=== PATIENT | female | born 1990 | race African-American/Black ===

== ENCOUNTER 2022-11-30 04:07 | Day surgery (SDC) | payer BC ==
[2022-11-26 13:05] VITALS: BMI 33.1
[~2022-11-30 04:07] MED LIST: BUPIVACAINE HCL/PF 0.5% (5MG/ML) 10 ML VIAL IJ ONE; LIDOCAINE HCL 1%, 10 MG/ML (20ML VIAL) INF ONE; ceFAZolin SODIUM 1 GM VIAL IVPB ONE
[2022-11-30] MEDS ORDERED: LIDOCAINE HCL 1%, 10 MG/ML (20ML VIAL) ONE (10:08)
[2022-11-30] MEDS ORDERED: BUPIVACAINE HCL/PF 0.5% (5MG/ML) 10 ML VIAL ONE (10:09)
[2022-11-30] MEDS ORDERED: PROPOFOL 20 ML ONE (11:13)
[2022-11-30] MEDS ORDERED: MIDAZOLAM HCL 2 MG/2 ML SINGLE DOSE VIAL ONE ×2 (11:14→11:33)
[2022-11-30] MEDS ORDERED: ONDANSETRON 4 MG/2 ML VIAL IVPUSH PRN (11:16)
[2022-11-30] MEDS ORDERED: oxyCODONE HCL 5 MG TABLET PO PRN (11:16)
[2022-11-30] MEDS ORDERED: ceFAZolin SODIUM 1 GM VIAL IVPB ONE ×2 (11:25)
[2022-11-30] MEDS ORDERED: LACTATED RINGERS SOLUTION 1,000 ML IV SCH (11:30)
[2022-11-30] MEDS ORDERED: BUPIVACAINE HCL/PF 0.5% (5MG/ML) 10 ML VIAL IJ ONE ×2 (11:35)
[2022-11-30] MEDS ORDERED: LIDOCAINE HCL 1%, 10 MG/ML (20ML VIAL) INF ONE ×2 (11:35)
[2022-11-30] MEDS ORDERED: SUCCINYLCHOLINE CHLORIDE 200 MG/10 ML SYRINGE ONE (12:44)
[2022-11-30] MEDS ORDERED: PROPOFOL 40 ML ONE (12:44)
[2022-11-30] MEDS ORDERED: ePHEDrine SULFATE 50 MG/1 ML AMPULE ONE (12:45)
[2022-11-30 13:43] VITALS: RESP 18
[2022-11-30 14:17] VITALS: PULSE 72
[2022-11-30 14:28] VITALS: BP 119/78; TEMP 97
== END 2022-11-30 14:45 | disposition home or self-care (01) ==
LOC: JASU-SURG 04:07
PROVIDERS: ATTEND Orthopaedic Surgery
PROC: 0LB50ZZ Excision of Right Lower Arm and Wrist Tendon, Open Approach (ICD-10-PCS; principal; 2022-11-30 10:00)
DX: M67.431 Ganglion, right wrist (principal)
CPT/HCPCS: 81025; 88304-TC; 94760